=== PATIENT | male | born 1980 | race Asian ===

== ENCOUNTER 2025-05-22 14:07 | Emergency (ER) | payer SELFPAY ==
--- NOTE | ~2025-05-22 | CT_ITS ---
CLINICAL HISTORY: R flank pain CT abdomen and pelvis without contrast Comparison: None provided Findings: Lung bases clear. No acute bony abnormalities. Liver and spleen within normal limits. Pancreas and adrenal glands unremarkable. Gallbladder within normal limits. 3 mm right UVJ stone with hydronephrosis. No left renal or ureteral stone noted. No evidence for aortic aneurysm. No free fluid or adenopathy in the pelvis. No diverticulitis. Appendix unremarkable. Impression: 3 mm right UVJ stone with hydronephrosis This document has been electronically signed by: Alejandro Butler MD on 05/22/2025 19:24:11
[2025-05-22 14:33] VITALS: BP 138/80; PULSE 69; RESP 18; TEMP 36.9; O2SAT 97; BMI 24.5
--- NOTE | 2025-05-22 14:36 | ED_ITS ---
HPI - General Adult General Chief complaint: Abdominal Pain Stated complaint: stomach pain Time Seen by Provider: 05/22/25 17:12 Related Data Previous Rx's ?Medication ?Instructions ?Recorded tamsulosin 0.4 mg capsule (Flomax) 0.4 mg PO BEDTIME # 7 caps 05/22/25 ketorolac 10 mg tablet 10 mg PO Q6H PRN pain #20 ta bs 05/23/25 ondansetron HCl 4 mg tablet 4 mg PO Q8H PRN nausea and 05/23/25 vomiting #10 tabs oxycodone 5 mg tablet 5 mg PO Q8H PRN pain #7 tabs 05/23/25 Allergies Allergy/AdvReac Type Severity Reaction Status Date / Time No Known Allergies Allergy Verified 05/23/25 02:50 [facility] Social History Social History Advance Directives: No Advance Directives Information Provided: No Do you have a plan to hurt others: No Plan Physical Exam ED Vital Signs: Vital Signs - 24 hr 05/22/25 14:33 Temperature 98.5 F Pulse Rate 69 Respiratory Rate 18 Blood Pressure 138/80 Pulse Oximetry 97 Oxygen Delivery Method Room Air BMI result Body Mass Index 24.5 Course Course Course Narrative: RME: 44 year male presents to ED for right flank mid abdominal pain since yesterday after eating rice. Patient denies any nausea vomiting or diarrhea. Labs ordered Medications Administered Discontinued Medications Generic Name Dose Route Start Last Admin Trade Name Freq PRN Reason Stop Dose Admin Acetaminophen 975 mg 05/22/25 18:55 05/22/25 19:22 Acetaminophen 325 Mg Tablet PO 05/22/25 18:56 975 mg ONCE ONE Administration Ketorolac Tromethamine 15 mg 05/22/25 18:55 05/22/25 19:22 Ketorolac Tromethamine 15 Mg/Ml Vial IM 05/22/25 18:56 15 mg ONCE ONE Administration Tamsulosin HCl 0.4 mg 05/22/25 18:56 05/22/25 19:22 Tamsulosin Hcl 0.4 Mg Capsule PO 05/22/25 18:57 0.4 mg ONCE ONE Administration Medical Decision Making Medical Decision Making [facility] Narrative: Medical Decision Makin-year-old male with right flank pain no fever. Mild right CVA tenderness and mild hydronephrosis. CT performed with small UVJ stone in the right side. Provided Flomax NSAIDs strict return precautions Preliminary Favored Differential Diagnosis: Pyelonephritis kidney stone musculoskeletal pain among additional considered etiologies Testing Interpreted Independently: ?See below for details Radiology or Lab testing Results Reviewed: ?See below for details Consults: ?See below for details Independent Historians/External Chart Reviews: ?See below for details Social Determinants of Health Impacting MDM/Planning: ?See below for details Lab Data 05/22/25 14:58 05/22/25 14:58 Labs: Lab Results 05/22/25 Range/Units 14:58 WBC 13.1 H (4.8-10.8) X10*3/uL RBC 4.27 L (4.60-5.80) X10*6/uL Hgb 13.3 L (14.0-18.0) g/dl Hct 38.3 L (42.0-52.0) % MCV 89.7 (80.0-98.0) fL MCH 31.1 (27.0-33.0) pg MCHC 34.7 (31.0-36.0) g/dl RDW 11.9 (11.0-16.0) % Plt Count 220 (160-400) X10*3/uL MPV 9.9 (9.4-12.4) fL Immature Gran % (Auto) 0.2 (0.0-0.4) % Neut % (Auto) 85.8 H (45-73) % Lymph % (Auto) 7.3 L (20-40) % [place] % (Auto) 6.5 (2-11) % Eos % (Auto) 0.0 (0-4) % Baso % (Auto) 0.2 (0-2) % Lymph # (Auto) 1.0 L (1.2-4.9) X10*3/uL [place] # (Auto) 0.9 (0.1-1.2) X10*3/uL Eos # (Auto) 0.0 (0.0-0.4) X10*3/uL Baso # (Auto) 0.0 (0.0-0.2) X10*3/uL Abs Immat Gran (auto) 0.02 (0.00-0.03) X10*3/uL Absolute Neuts (auto) 11.3 H (2.0-8.3) x10*3/uL Absolute Nucleated RBC 0.000 (0.0-0.012) X10*3/uL Nucleated RBC % (auto) 0.0 (0.0-0.2) /100WBC Sodium 140 (135-145) mmol/L Potassium 3.9 (3.3-5.1) mmol/L Chloride 111 H (96-108) mmol/L Carbon Dioxide 24 (22-29) mmol/L Anion Gap 9 L (12-20) BUN 16 (9-16) mg/dL Creatinine 1.15 (0.5-1.4) mg/dL Estim Creat Clear Calc 59.1 Estimated GFR > 60 Random Glucose 112 (60-115) mg/dL Calcium 8.9 (8.4-10.2) mg/dL Total Bilirubin 0.6 (0.0-1.0) mg/dL AST 31 (5-37) U/L ALT 23 (0-40) U/L Alkaline Phosphatase 68 (39-117) U/L Total Protein 7.3 (6.5-8.0) g/dL Albumin 4.6 (3.5-5.0) g/dL Lipase 14 (8-78) U/L Urine Color Yellow Urine Appearance Clear Urine pH 5.5 (5.0-9.0) Ur Specific [place] 1.020 (1.005-1.025) Urine Protein Negative (Neg-Trace) mg/dL Urine Glucose (UA) Negative (Negative) mg/dL Urine Ketones Negative (Negative) mg/dL Urine Blood Negative (Negative) Urine Nitrite Negative (Negative) Ur Leukocyte Esterase Negative (Negative) Discharge Plan Discharge Clinical Impression: Calculus of kidney Patient Disposition: Home, Self-Care Instructions: Kidney Stones (ED) Additional Instructions: you have a kidney stone. This is likely to pass on its own. Call urology for follow up. Use ibuprofen, an over the counter medication 400mg, every 6 hours as needed for pain and take th prescribed medication below as prescribed. Drink plenty of fluid. Prescriptions: New tamsulosin [Flomax] 0.4 mg capsule 0.4 mg PO BEDTIME Qty: 7 0RF No Action ketorolac 10 mg tablet 10 mg PO Q6H PRN (Reason: pain) Qty: 20 0RF Rx Instructions: maximum total duration of 5 days from all oral, intranasal, or parenteral formulations, the patient received an intramuscular dose of Toradol here in the emergency room ondansetron HCl 4 mg tablet 4 mg PO Q8H PRN (Reason: nausea and vomiting) Qty: 10 0RF oxycodone 5 mg tablet 5 mg PO Q8H PRN (Reason: pain) Qty: 7 0RF Rx Instructions: Partial Fill upon patient request. Referrals: [facility] [Provider Group, Urology] Referral Note: Call for an appointment for kidney stone Interventions: ED Discharge Assessment Last Done: 05/22/25 19:31 Discharge Date/Time: 05/22/25 19:45 Print Language: Czech
[2025-05-22 15:03] LABS: MANUAL DIFF FLAG NO
[2025-05-22 15:06] LABS: Appearance Urine Clear; Glucose Urine UA Negative (Negative); Hematocrit 38.3 % (42.0-52.0); Hemoglobin 13.3 g/dl (14.0-18.0); Imm Gran Abs Auto 0.02 X10*3/uL (0.00-0.03); Imm Gran Pct Auto 0.2 % (0.0-0.4); Lymphocytes Absolute Auto 1.0 X10*3/uL (1.2-4.9); Mean Corpuscular HGB Conc 34.7 g/dl (31.0-36.0); Mean Corpuscular Hemoglobin 31.1 pg (27.0-33.0); Mean Corpuscular Volume 89.7 fL (80.0-98.0); NRBC Abs Auto 0.000 X10*3/uL (0.0-0.012); NRBC Pct Auto 0.0 /100WBC (0.0-0.2); PH 5.5 (5.0-9.0); Platelet Count 220 X10*3/uL (160-400); Red Blood Count 4.27 X10*6/uL (4.60-5.80); Specific Gravity - Urine 1.020 (1.005-1.025); White Blood Count 13.1 X10*3/uL (4.8-10.8)
[2025-05-22 15:24] LABS: Alanine Aminotransferase 23 U/L (0-40); Albumin Level 4.6 g/dL (3.5-5.0); Alkaline Phosphatase 68 U/L (39-117); Anion Gap 9 (12-20); Aspartate Amino Transferase 31 U/L (5-37); Blood Urea Nitrogen 16 mg/dL (9-16); Calcium 8.9 mg/dL (8.4-10.2); Carbon Dioxide 24 mmol/L (22-29); Chloride 111 mmol/L (96-108); Creatinine Clr Calc Pharmacy 59.1; Estimated Glomerular Filt Rate > 60; Lipase 14 U/L (8-78); Potassium 3.9 mmol/L (3.3-5.1); Sodium 140 mmol/L (135-145); Total Protein 7.3 g/dL (6.5-8.0)
[2025-05-22 19:15] VITALS: BP 148/85; PULSE 68; RESP 18; O2SAT 99
[2025-05-22 19:31] VITALS: BP 148/85; PULSE 68; RESP 18; TEMP 36.9; O2SAT 99
== END 2025-05-22 19:45 | disposition home or self-care (01) ==
PROVIDERS: Physician Assistant; Emergency Provider Emergency Medicine
DX: N20.0 Calculus of kidney (principal); R10.22 Pelvic and perineal pain left side
CPT/HCPCS: 36415; 74176; 80053; 81003; 83690; 85025; 99284; J1885

== ENCOUNTER → 2025-05-22 18:55 | Outpatient (BNV) | payer SELFPAY | PROVIDERS: Emergency Provider Emergency Medicine; Visit Provider Radiology Diagnostic Radiology | DX: N13.2 Hydronephrosis with renal and ureteral calculous obstruction (principal) | CPT/HCPCS: 74176 ==

== ENCOUNTER 2025-05-23 02:41 | Emergency (ER) | payer MEDICAID, OTHER, SELFPAY ==
[2025-05-23 02:45] VITALS: BP 127/71; PULSE 69; RESP 15; TEMP 37.2; O2SAT 98; BMI 24.5
--- OUTSIDE RECORDS SUMMARY | 2025-05-23 03:13 | XMS_ITS ---
Author Organization Unknown ENCOUNTERS Encounter Performer Location Date Diagnosis Diagnosis Status Pre Admit [facility] [place] [address] [id number] *Note: Encounters from your own facility or health system may be excluded. Allergies, Adverse Reactions, Alerts Allergen Type Severity Identification Date Medications Name Date Quantity Days Supplied GPI Number
--- NOTE | 2025-05-23 03:23 | ED_ITS ---
HPI - Male Genitourinary General Chief complaint: Urogenital-Male Stated complaint: Urinary Symptoms Time Seen by Provider: 05/23/25 03:06 Source: patient Limitations: language barrier History of Present Illness ED Provider: Tala Méndez PA-C HPI Narrative: 44-year-old Sinhala male patient presents with right flank pain. Patient was seen earlier today, found to be passing a 3 mm UVJ stone. He was not sent with the pain medication, he was sent with Flomax, he did not required pick up worker this prescription until the next morning. Patient is here due to intractable pain. Associated nausea. Related Data Previous Rx's ?Medication ?Instructions ?Recorded tamsulosin 0.4 mg capsule (Flomax) 0.4 mg PO BEDTIME # 7 caps 05/22/25 ketorolac 10 mg tablet 10 mg PO Q6H PRN pain #20 ta bs 05/23/25 ondansetron HCl 4 mg tablet 4 mg PO Q8H PRN nausea and 05/23/25 vomiting #10 tabs oxycodone 5 mg tablet 5 mg PO Q8H PRN pain #7 tabs 05/23/25 Allergies Allergy/AdvReac Type Severity Reaction Status Date / Time No Known Allergies Allergy Verified 05/23/25 02:50 Review of Systems Review of Systems: Yes all other systems are reviewed and are negative Constitutional: Constitutional: Denies fatigue and Denies fever(s) Gastrointestinal: Gastrointestinal: Denies abdominal pain, Reports nausea and Denies vomiting Genitourinary: Genitourinary: Reports flank pain Musculoskeletal: Musculoskeletal: Reports back pain Endocrine: Endocrine: Denies fatigue [facility] Past Medical History Attestation statement: The following information was validated with the patient. Social History Social History Advance Directives: No Advance Directives Information Provided: No Do you have a plan to hurt others: No Plan Physical Exam Vital Signs: Vital Signs: Last Vital Signs Temp 98.9 F 05/23/25 02:45 Pulse 69 05/23/25 02:45 Resp 15 05/23/25 02:45 BP 127/71 05/23/25 02:45 Pulse Ox 98 05/23/25 02:45 O2 Del Method Room Air 05/23/25 02:45 BMI result Body Mass Index 24.5 Const: Other: Alert, appears uncomfortable can not sit still Orientation/consciousness: patient oriented x3 Resp: Effort & Inspection: normal respiratory effort Cardio: Other: Normal peripheral perfusion Skin: Other: Warm dry no rash Neuro: General: patient oriented x3, gait normal, no focal motor deficits and CN's II-XI intact bilaterally Psych: Other: Cooperative Medical Decision Making Medical Decision Making [facility] Narrative: 44-year-old Sinhala male patient presents with right flank pain. Patient was seen earlier today, found to be passing a 3 mm UVJ stone. He was not sent with the pain medication, he was sent with Flomax, he did not required pick up worker this prescription until the next morning. Patient is here due to intractable pain. Associated nausea. Problem: Active renal colic History: Per patient I have considered the following differential diagnoses: Pain Plan: The patient was sent with Flomax, he was not sent with a any other prescriptions. Medicating him for his pain, sending with pain meds and nausea medicine. I will also send him with a contact for Urology again. He already had a CT scan today, he also had labs and a urine performed, no indication to repeat any study. Differential Diagnosis Differential Diagnoses: The differential diagnosis associated with the presentation includes See [facility] Admission/Observation Consideration of admission/observation: Escalation of care including admission/observation considered Not applicable Discharge Plan Discharge Clinical Impression: Calculus of distal right ureter Patient Disposition: Home, Self-Care Instructions: Renal Colic (ED), Ureteral Stones (ED) Additional Instructions: You are passing a kidney stone. See home care instructions. You were given a medication called Flomax at your 1st visit in the emergency room, pick up worker your prescription in the morning, take this medication as directed. I have sent additional medication for you to your pharmacy, for your nausea and pain. Uses Zofran as needed for nausea. Use the ketorolac as needed for pain, take this medication with food, it is an anti-inflammatory. Take the oxycodone as needed for severe pain. I am again providing you with a contact for our urology service, you can call to schedule an appointment. Prescriptions: New ketorolac 10 mg tablet 10 mg PO Q6H PRN (Reason: pain) Qty: 20 0RF Rx Instructions: maximum total duration of 5 days from all oral, intranasal, or parenteral formulations, the patient received an intramuscular dose of Toradol here in the emergency room ondansetron HCl 4 mg tablet 4 mg PO Q8H PRN (Reason: nausea and vomiting) Qty: 10 0RF oxycodone 5 mg tablet 5 mg PO Q8H PRN (Reason: pain) Qty: 7 0RF Rx Instructions: Partial Fill upon patient request. No Action tamsulosin [Flomax] 0.4 mg capsule 0.4 mg PO BEDTIME Qty: 7 0RF Referrals: Randell Garcia MD [Physician, Urology] Referral Note: Right ureteral stone Print Language: Sinhala
[2025-05-23] MEDS: oxyCODONE HCl Immed Release 5 MG TABLET 10 MG PO (03:30)
[2025-05-23 03:53] VITALS: BP 127/71; PULSE 69; RESP 15; TEMP 37.2; O2SAT 98
== END 2025-05-23 03:53 | disposition home or self-care (01) ==
PROVIDERS: Emergency Provider Emergency Medicine
DX: N20.1 Calculus of ureter (principal); R11.0 Nausea
CPT/HCPCS: 96372; 99283; 99284; J1885